=== PATIENT | female | born 1950 | race Caucasian/White ===

== ENCOUNTER 2017-11-05 11:45 | Emergency (ER) | payer MEDICARE | END 2017-11-05 14:06 | disposition home or self-care (01) | LOC: FTE 11:45 | DX: Z48.01 Encounter for change or removal of surgical wound dressing (principal); I50.9 Heart failure, unspecified; I10 Essential (primary) hypertension; E11.9 Type 2 diabetes mellitus without complications; Z79.84 Long term (current) use of oral hypoglycemic drugs | CPT/HCPCS: 99281 ==

== ENCOUNTER 2018-09-08 19:25 | Emergency (ER) | payer MEDICARE, MEDICAID | END 2018-09-09 00:18 | disposition home or self-care (01) | LOC: FTE 09-09 00:18 | DX: L98.8 Other specified disorders of the skin and subcutaneous tissue (principal); E11.9 Type 2 diabetes mellitus without complications; I11.0 Hypertensive heart disease with heart failure; I50.9 Heart failure, unspecified; Z79.84 Long term (current) use of oral hypoglycemic drugs | CPT/HCPCS: 99283 ==